=== PATIENT | male | born 1940 | race Caucasian/White ===

== ENCOUNTER → 2021-06-23 08:27 | Outpatient (CLI) | payer MEDICARE, OTHER, SELFPAY ==
[2021-06-23 09:49] LABS: Hemoglobin A1C% w Est Avg Glu 5.6 % (4.0-6.0)
[2021-06-23 09:59] LABS: Alanine Aminotransferase 25 IU/L (<50); Albumin 4.8 g/dL (3.5-5.0); Albumin Globulin Ratio 1.2 (1.0-2.8); Alkaline Phosphatase 46 U/L (38-126); Aspartate Aminotransferase 42 IU/L (17-59); BUN Creatinine Ratio 18.2 (6-22); Bilirubin Total 0.5 mg/dL (0.2-1.3); Blood Urea Nitrogen 22 mg/dL (9-20); Calcium 11.4 mg/dL (8.4-10.2); Carbon Dioxide 25 mmol/L (22-32); Chloride 96 mmol/L (98-107); Cholesterol 162 mg/dL (140-199); Estimated Glomerular Filt Rate 57.7 mL/min (>60); Globulin 3.9 g/dL (1.7-4.1); Glucose 106 mg/dL (80-110); HDL Cholesterol 92 mg/dL (40-60); HEMOLYSIS < 15 (0-50); LDL Cholesterol Calculated 55 mg/dL (<100); Sodium 131 mmol/L (137-145); Total Protein 8.7 g/dL (6.3-8.2); Triglycerides 75 mg/dL (35-150)
[2021-06-23 10:00] LABS: Potassium 5.6 mmol/L (3.4-5.1)
== END ==
PROVIDERS: Referring Provider Family Medicine; Visit Provider Family Medicine
DX: E78.00 Pure hypercholesterolemia, unspecified (principal); R73.03 Prediabetes; N28.9 Disorder of kidney and ureter, unspecified
CPT/HCPCS: 36415; 80053; 80061; 83036

== ENCOUNTER 2023-05-08 08:33 | Emergency (ER) | payer OTHER, SELFPAY ==
[2023-05-08 08:36] VITALS: BP 117/58; PULSE 89; RESP 18; TEMP 36.3; O2SAT 98; BMI 22.6
--- NOTE | 2023-05-08 08:54 | ED_ITS ---
HPI - Back Pain/Injury General Chief Complaint: Back Pain/Injury Stated Complaint: fell on tailbone Time Seen by Provider: 05/08/23 08:54 Source: patient, RN notes reviewed and old records reviewed Mode of arrival: Ambulatory Limitations: no limitations History of Present Illness HPI Narrative: This is an 82-year-old male with history of hypertension, dyslipidemia, COPD who presents with complaint of lower lumbar pain for 6 weeks. Patient states he went on a road trip with friends to [place] so Taryn had gotten out of the car sort of lost his balance and fell backwards on his buttocks. States he is had pain in his mid lumbar spine since then which has just not resolved. He states he is usually fairly comfortable when lying in bed but has increased pain with ambulation. States pain does sometimes go down both legs. He denies numbness, tingling or weakness. He denies any loss of bowel or bladder control. No saddle anesthesia. Patient states pain just has not been getting better which is why he presented today. He denies any other recent injuries. He is not on any aspirin, Plavix or other blood thinners. He states he typically takes Tylenol for pain which is sometimes helpful but sometimes not. He avoids ibuprofen as he is had blood in his stool in the past. Patient allergic to sulfa. Former tobacco, occasional alcohol, no illicit. Patient's primary care was in [place]. Related Data Previous Rx's Medication Instructions Recorded tramadol 50 mg tablet 50 mg PO Q6H PRN pain #10 tabs 05/08/23 Allergies Allergy/AdvReac Type Severity Reaction Status Date / Time Sulfa (Sulfonamide Allergy Verified 05/08/23 08:40 Antibiotics) Review of Systems Review of Systems ROS Unobtainable: All systems reviewed & are unremarkable except as noted in HPI and below Patient History Social History Smoking Status: Former smoker Smoking Status: Former smoker alcohol intake frequency: 0-2 drinks per day Substance Use Type: does not use Exam Narrative Exam Narrative: GENERAL: Alert and oriented x three, male in mild distress. HEENT: Head normocephalic, atraumatic, EOMI, pupils reactive, face symmetric, moist mucous membranes NECK: Supple, full range of motion CARDIOVASCULAR: Regular rate and rhythm without murmurs, rubs or gallops. RESPIRATORY: Breath sounds equal bilaterally, no wheezes rales or rhonchi. ABDOMEN: Soft, nontender. Normoactive bowel sounds all 4 quadrants. No guarding or rebound, rigidity, no mass : No CVA tenderness BACK: No cervical, thoracic or lumbar vertebral point tenderness. Patient indicates pain is mid lumbar 3-4 but not reproduced on palpation. No palpation of the SI joints or pelvis. Patient has normal range of motion. Patient's gait is normal. Rectal exam is deferred. Muscle strength is 5/5 in lower extremities, DTRs are 2/4 and lower extremities. Dorsalis pedis and tibialis pulses are 2+ and lower extremities. Sensation is intact in the lower extremities. EXTREMITIES: Normal range of motion, no clubbing or edema. Neurovascularly intact NEUROLOGICAL: Cranial nerves II through XII grossly intact. Moving all extremities SKIN: Warm, dry, no petechiae, no rashes or lesions. Initial Vital Signs Initial Vital Signs: Vital Signs Temperature 97.3 F L 05/08/23 08:36 Pulse Rate 89 05/08/23 08:36 Respiratory Rate 18 05/08/23 08:36 Blood Pressure 117/58 L 05/08/23 08:36 Pulse Oximetry 98 05/08/23 08:36 Oxygen Delivery Method Room Air 05/08/23 08:36 Course Orders Ordered: ED Orders 05/08/23 09:11 CT lumbar spine wo con Stat Vital Signs Vital signs: Vital Signs - 8 hr 05/08/23 08:36 Temperature 97.3 F L Pulse Rate 89 Respiratory Rate 18 Blood Pressure 117/58 L Pulse Oximetry 98 Oxygen Delivery Method Room Air MDM - Back Pain/Injury Imaging Data [facility] CT: Radiologist's Impression: [place] [address] CT Scan Report Signed Patient: Daniel Benavides MR#: [id number] : 1940 Acct:[id number] Age/Sex: 82 / M Date of Service: 05/08/23 Loc: ED Accession Number: [id number] ?? Procedure: CT lumbar spine wo con Ordering Provider: Aline Martin D.O. PROCEDURE:? CT LUMBAR SPINE WO CON ? INDICATIONS:? fall 6 weeks ago, pain w/ walking, midlumbar ? TECHNIQUE:? Noncontrast 3 mm thick sections acquired from the T12 level to the sacrum.? Sagittal and coronal reformats were constructed.? For radiation dose reduction, the following was used:? automated exposure control.? ? COMPARISON:? None. ? FINDINGS:? Image quality:? Excellent.? ? Bones:? There rightward scoliotic curvature with apex at L2.? Trace retrolisthes is is present of L5 on S1.? There is no visualized fracture or dislocation. ? Severe degenerative disc space narrowing is present from L2-3 through L5-S1 with prominent sclerotic reactive endplate changes.? Multilevel anterior osteophytes are present.? Multilevel degenerative disc bulges are present.? Mild spinal stenosis L3-4, L4-5.? Multilevel foraminal narrowing is present overall most severe at L4-5 and L5-S1.? Multilevel facet and ligamentum flavum hypertrophy are present. ? Soft tissues:? No retroperitoneal masses or hematomas.? 8 mm hyperdense exophytic focus is present posterior to the superior right renal pole.? sualized aorta is normal in caliber.? ? ? IMPRESSION:? Multilevel degenerative changes without visualized fracture.? However, if symptoms persist and there is concern for occult injury, MRI may be obtained on a nonemergent basis. ? 8 mm hyperdense right hyperdense renal focus overall indeterminate but may represent a hyperdense cyst.? Further evaluation with ultrasound is recommended on nonemergent basis. ? ? ? Dictated by: Xena Chan M.D. on 05/08/2023 at 10:32 ? ? Approved by: Xena Chan M.D. on 05/08/2023 at 10:45?? MDM Narrative Medical decision making narrative: This is an 82-year-old male who presents with complaint of low back pain after a fall 6 weeks ago which has never resolved on is persistent but intermittent. Patient does not have any other red flag symptoms but based on age felt appropriate for CT imaging of his L-spine. Patient was found have an incidental right renal cyst recommended to follow up for ultrasound for more definitive evaluation. Patient has multiple degenerative changes, no fracture or dislocation but certainly reason to have discomfort of his back. Discussed with patient he does have a primary care he can follow up with. Recommend discussing physical therapy, Tylenol often helpful but occasionally needs something stronger was given a short course of narcotic pain medication. He states he is tolerated these types of medications before. Discussed follow-up possibly with physiatry verses spinal surgery. Patient was given referral to his choice. Discussed return precautions all questions answered. Discharge Plan Departure Patient Disposition: Home Clinical Impression: Back pain, Renal cyst Instructions: DI for Low Back Pain Activity Restrictions/Additional Instructions: Follow-up with your physician for further evaluation you may benefit from physical therapy or intervention. Plate was noted that there was a cyst on your right kidney on your imaging. It is recommended you follow-up with your physician to have an ultrasound to fully evaluate the cyst. You may take Tylenol up to a 1000 mg every 6 hours. If in adequate for pain you can take tramadol 1-2 tablets every 6 hours as needed. This medication can make you sleepy do not drive, perform hazardous activities or make any major decisions while taking it. This medication will make you constipated please take a stool softener once to twice daily until stools are soft and regular. Prescription sent to [facility] in [place]. Please return for rapidly worsening symptoms, new weakness, numbness loss of bowel or bladder control, loss of sensation in your groin, your lower extremities, inability to lift or move your leg or other new or concerning changes. Prescriptions: New tramadol 50 mg tablet 50 mg PO Q6H PRN (Reason: pain) Qty: 10 0RF Referrals: Pramod Botello DO [Physician] - Miscellaneous,MD Jewel [Primary Care Provider] - Stand Alone Forms: Patient Portal/API
--- NOTE | 2023-05-08 09:11 | DI.CT.S_ITS ---
PROCEDURE: CT LUMBAR SPINE WO CON INDICATIONS: fall 6 weeks ago, pain w/ walking, midlumbar TECHNIQUE: Noncontrast 3 mm thick sections acquired from the T12 level to the sacrum. Sagittal and coronal reformats were constructed. For radiation dose reduction, the following was used: automated exposure control. COMPARISON: None. FINDINGS: Image quality: Excellent. Bones: There rightward scoliotic curvature with apex at L2. Trace retrolisthesis is present of L5 on S1. There is no visualized fracture or dislocation. Severe degenerative disc space narrowing is present from L2-3 through L5-S1 with prominent sclerotic reactive endplate changes. Multilevel anterior osteophytes are present. Multilevel degenerative disc bulges are present. Mild spinal stenosis L3-4, L4-5. Multilevel foraminal narrowing is present overall most severe at L4-5 and L5-S1. Multilevel facet and ligamentum flavum hypertrophy are present. Soft tissues: No retroperitoneal masses or hematomas. 8 mm hyperdense exophytic focus is present posterior to the superior right renal pole. sualized aorta is normal in caliber. IMPRESSION: Multilevel degenerative changes without visualized fracture. However, if symptoms persist and there is concern for occult injury, MRI may be obtained on a nonemergent basis. 8 mm hyperdense right hyperdense renal focus overall indeterminate but may represent a hyperdense cyst. Further evaluation with ultrasound is recommended on nonemergent basis. Dictated by: Xena Chan M.D. on 05/08/2023 at 10:32 Approved by: Xena Chan M.D. on 05/08/2023 at 10:45
[2023-05-08 11:18] VITALS: BP 123/64; PULSE 87; RESP 18; O2SAT 99
== END 2023-05-08 11:18 | disposition home or self-care (01) ==
PROVIDERS: Emergency Provider Emergency Medicine
DX: M54.50 Low back pain, unspecified (principal); N28.1 Cyst of kidney, acquired
CPT/HCPCS: 72131; 99283; 99284

== ENCOUNTER → 2023-06-19 08:43 | Outpatient (CLI) | payer OTHER, SELFPAY ==
--- NOTE | 2023-06-19 08:46 | DI.RAD.S_ITS ---
PROCEDURE: XR LUMBAR SPINE MIN 4V INDICATIONS: low back pain TECHNIQUE: 5 views of the lumbar spine were acquired, including bilateral oblique views. COMPARISON: None. FINDINGS: Bones: 5 nonrib-bearing vertebrae are present. Grade 1 retrolisthesis of L4 on L5, L3 on L4 and L2 on L3. Convex right scoliosis, Chapa angle of 17 degrees. Severe disc height loss at L2-3, L3-4. Moderate to severe disc height loss at L4-5, L5-S1. Diffuse facet arthrosis. Soft tissues: Overlying bowel gas pattern is normal. No suspicious soft tissue calcifications. Oblique images: No pars defects. IMPRESSION: Moderate to severe, multilevel degenerative disc disease and facet arthrosis. Dictated by: Tony Skinner M.D. on 06/19/2023 at 11:25 Approved by: Tony Skinner M.D. on 06/19/2023 at 11:28
--- NOTE | 2023-06-19 08:46 | DI.RAD.S_ITS ---
PROCEDURE: XR HIP W PEL IF DONE ALEXIS MIN 4V INDICATIONS: Bilateral hip pain TECHNIQUE: AP pelvis with lateral view(s) of the bilateral hip(s). COMPARISON: None. FINDINGS: Bones: No fractures or dislocations. Pelvic ring appears intact. No suspicious bony lesions. Osteophytic lipping of the acetabuli. Nonuniform joint space narrowing. Soft tissues: The visualized bowel gas pattern is normal. No suspicious soft tissue calcifications. Vascular calcifications. IMPRESSION: Mild hip osteoarthritis. Kellgren-Tamir Grade 1-2. Dictated by: Tony Skinner M.D. on 06/19/2023 at 11:28 Approved by: Tony Skinner M.D. on 06/19/2023 at 11:29
--- NOTE | 2023-06-19 08:50 | DI.MRI.S_ITS ---
PROCEDURE: MR LUMBAR SPINE WO CON INDICATIONS: Low back pain with radiculopathy s/p fall TECHNIQUE: Noncontrast sagittal T1 spin echo and T2 fast echo, sagittal STIR, and T2 fast spin echo through the lumbar spine. In cases with scoliosis, additional coronal T2 fast spin echo may be performed. COMPARISON: [facility], CT, CT LUMBAR SPINE WO CON, 05/08/2023, 9:18. FINDINGS: Image quality: Excellent. Alignment and Curvature: Straightening of normal lumbar lordosis. Levocurvature of the lower lumbar spine. Minimal retrolisthesis at L5-S1. Bone Marrow: Multilevel degenerative endplate changes. No acute vertebral body compression fractures. Spinal Cord: Conus medullaris terminates at the L1-L2 level. Visualized cord demonstrates normal signal and size. Paraspinous Soft Tissues: T2 hypointense subcentimeter lesion at the superior aspect of the right kidney. Additional bilateral renal simple appearing cyst. T12-L1: No central canal or neural foraminal stenosis. L1-L2: Disc desiccation and height loss with a posterior disc bulge. Facet arthropathy and thickening of the ligamentum flavum. No central canal or neural foraminal stenosis. L2-L3: Severe disc desiccation height loss. Posterior disc bulge. Facet arthropathy and thickening of the ligamentum flavum. Mild central canal stenosis. Narrowing of the left greater than right lateral recesses with possible impingement of the descending left L3 nerve root. Moderate left neural foraminal stenosis. No right neural foraminal stenosis. L3-L4: Severe disc desiccation height loss. Posterior disc bulge. Facet arthropathy and thickening ligamentum flavum. Severe narrowing of the right lateral recess. Mild central canal stenosis. Moderate right and no left neural foraminal stenosis. L4-L5: Severe disc desiccation height loss. Posterior disc osteophyte complex. Facet arthropathy and thickening ligamentum flavum. Mild central canal stenosis. Mild narrowing of the lateral recesses with abutment of the descending L5 nerve roots. Moderate right and mild left neural foraminal stenosis. L5-S1: Disc desiccation and height loss with a posterior disc bulge. Facet arthropathy and thickening of the ligamentum flavum. No central canal stenosis. Mild narrowing of the lateral recesses with abutment of the S1 nerve roots. Severe right and moderate to severe left neural foraminal stenosis. IMPRESSION: 1. Multilevel degenerative changes of the lumbar spine with levocurvature of the lower lumbar spine. 2. Multilevel mild central canal stenosis. Multilevel lateral recess stenosis with possible impingement of the descending left L3 nerve root and descending right L4 nerve root. 3. Multilevel neural foraminal stenosis with severe right and moderate to severe left neural foraminal stenosis at L5-S1. See above for additional levels. 4. Subcentimeter T2 hypointense lesion at the superior aspect of the right kidney, recommend renal ultrasound for further evaluation. Dictated by: Augustin Rodarte M.D. on 06/19/2023 at 10:26 Approved by: Augustin Rodarte M.D. on 06/19/2023 at 10:33
== END ==
PROVIDERS: Referring Provider Anesthesiology; Visit Provider Anesthesiology
DX: M47.26 Other spondylosis with radiculopathy, lumbar region (principal); M47.27 Other spondylosis with radiculopathy, lumbosacral region; M48.061 Spinal stenosis, lumbar region without neurogenic claudication; M48.07 Spinal stenosis, lumbosacral region; M51.16 Intervertebral disc disorders with radiculopathy, lumbar region; M51.17 Intervertebral disc disorders with radiculopathy, lumbosacral region; M16.0 Bilateral primary osteoarthritis of hip; M54.9 Dorsalgia, unspecified; R27.0 Ataxia, unspecified; M54.50 Low back pain, unspecified; M25.551 Pain in right hip; M25.552 Pain in left hip
CPT/HCPCS: 72110; 72148; 73522

== ENCOUNTER → 2023-07-04 10:33 | Outpatient (CLI) | payer OTHER, SELFPAY ==
--- NOTE | 2023-07-04 10:34 | DI.US.S_ITS ---
PROCEDURE: US RENAL COMPLETE INDICATIONS: RENAL LESION SEEN ON MRI TECHNIQUE: Real-time scanning was performed of the kidneys and bladder, with image documentation. COMPARISON: [facility], CT, CT LUMBAR SPINE WO CON, 05/08/2023, 9:18. [facility], MR, MR LUMBAR SPINE WO CON, 06/19/2023, 8:57. FINDINGS: Kidneys: Kidneys are normal in size. Right kidney measures 11.1 cm long; left kidney measures 12.0 cm long. Right renal cortical thickness is 1.4 cm; left renal cortical thickness is 1.3 cm. No hydronephrosis or nephrolithiasis. 1.2 cm exophytic anechoic structure right upper kidney likely represents a small cortical cyst, probably corresponds to the finding described in the report for recent MRI and CT. Simple appearing left kidney cortical cysts present as before. Bladder: Pre-void bladder volume is 66 mL. Post-void residual is 33 mL. Pre-void images demonstrate no intraluminal masses or stones. On pre-void images, both ureteral jets are noted with color Doppler interrogation. (Of note, ureteral jets may not be detectable in up to 25% of cases due to insufficient differences in specific gravity between ureteral and bladder urine). Miscellaneous: No free pelvic fluid. IMPRESSION: Small cortical cyst at the right upper kidney corresponding to the finding described in the report for prior CT and MRI of the lumbar spine. No highly suspicious features identified sonographically. Dictated by: James Valdez M.D. on 07/04/2023 at 15:33 Approved by: James Valdez M.D. on 07/04/2023 at 15:40
== END ==
PROVIDERS: Referring Provider Anesthesiology; Visit Provider Anesthesiology
DX: N28.1 Cyst of kidney, acquired
CPT/HCPCS: 76770

== ENCOUNTER → 2024-05-16 08:40 | Outpatient (CLI) | payer MEDICARE, SELFPAY | PROVIDERS: Referring Provider Physician Assistant Surgical; Visit Provider Surgery | DX: L89.323 Pressure ulcer of left buttock, stage 3 (principal); R23.4 Changes in skin texture | CPT/HCPCS: 11042; 99203; 99213 ==

== ENCOUNTER → 2024-05-23 13:31 | Outpatient (CLI) | payer MEDICARE, SELFPAY | LOC: WC 13:32 | PROVIDERS: Referring Provider Student in an Organized Health Care Education/Training Program; Visit Provider Nurse Practitioner Family | DX: Z09 Encounter for follow-up examination after completed treatment for conditions other than malignant neoplasm (principal); Z87.2 Personal history of diseases of the skin and subcutaneous tissue; L89.323 Pressure ulcer of left buttock, stage 3 | CPT/HCPCS: 99212; 99213 ==